=== PATIENT | female | born 1970 | race Caucasian/White ===

== ENCOUNTER 2017-06-16 15:07 | Emergency (ER) | payer BC, OTHER ==
--- NOTE | 2017-06-16 15:24 | EDM.PDOC ---
ED HPI GENERAL MEDICAL PROBLEM - General Stated Complaint: CHEST PAIN Time Seen by Provider: 06/16/17 15:07 Source of Information: Reports: Patient History Limitations: Reports: No Limitations - History of Present Illness INITIAL COMMENTS - FREE TEXT/NARRATIVE: 46 y.o.w.f came by PC because of CP at 3 am lasting a few sec and again at 8 am. Pt was working all day long and camd to the ed this pm after work. Pt did not have this episode the entire day. CAD risk factors: Family history and HTN. Cholesterol(?) No N/V/D or dizziness or any other acute medical issues. 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 Right Shoulder Pain Score (Numeric/FACES): 4 - Related Data Allergies Allergy/AdvReac Type Severity Reaction Status Date / Time No Known Allergies Allergy Verified 06/16/17 15:31 Home Meds: Home Meds Multivitamin [Multivitamins] 1 tab PO DAILY 06/16/17 [History] ED ROS GENERAL - Review of Systems Review Of Systems: See Below Constitutional: Reports: No Symptoms HEENT: Reports: No Symptoms Respiratory: Reports: No Symptoms Cardiovascular: Reports: No Symptoms Endocrine: Reports: No Symptoms GI/Abdominal: Reports: No Symptoms : Reports: No Symptoms Musculoskeletal: Reports: No Symptoms Skin: Reports: No Symptoms Neurological: Reports: No Symptoms Psychiatric: Reports: No Symptoms Hematologic/Lymphatic: Reports: No Symptoms Immunologic: Reports: No Symptoms ED EXAM, GENERAL - Physical Exam Exam: See Below Exam Limited By: No Limitations General Appearance: Alert, WD/WN Eye Exam: Bilateral Eye: Normal Inspection Ears: Normal External Exam Ear Exam: Bilateral Ear: Auricle Normal Nose: Normal Inspection, Normal Mucosa, No Blood Throat/Mouth: Normal Inspection, Normal Lips Head: Atraumatic, Normocephalic Neck: Normal Inspection, Supple, Non-Tender Respiratory/Chest: No Respiratory Distress, Lungs Clear, Normal Breath Sounds Cardiovascular: Normal Peripheral Pulses, Regular Rate, Rhythm, No Edema, No Gallop, No JVD, No Murmur, No Rub Peripheral Pulses: 1+: Carotid (R) GI/Abdominal: Normal Bowel Sounds, Soft, Non-Tender, No Organomegaly, No Distention, No Abnormal Bruit, No Mass, Pelvis Stable (Female) Exam: Deferred Rectal (Female) Exam: Deferred Back Exam: Normal Inspection, Full Range of Motion Extremities: Normal Inspection, Normal Range of Motion, Non-Tender, No Pedal Edema, Normal Capillary Refill Neurological: Alert, Oriented, CN II-XII Intact, Normal Cognition, Normal Gait, Normal Reflexes, No Motor/Sensory Deficits Psychiatric: Normal Affect, Normal Mood Skin Exam: Warm, Dry, Intact, Normal Color, No Rash Lymphatic: No Adenopathy EKG INTERPRETATION EKG Date: 06/16/17 Time: 15:20 Rhythm: NSR Rate (Beats/Min): 68 [place]: Normal P-Wave: Present QRS: Normal ST-T: Normal QT: Normal Comparison: NA - No Prior EKG Course - Vital Signs Text/Narrative:: 46 y.o.w.f came by PC because of CP at 3 am lasting a few sec and again at 8 am. Pt was working all day long and camd to the ed this pm after work. Pt did not have this episode the entire day. CAD risk factors: Family history and HTN. Cholesterol(?) Pt works out 6 times a week. No N/V/D or dizziness or any other acute medical issues. BP 131/61 pulse 64 RR 18 Temp 36.8 O2 sat 98% PE: WNWD W F NAD Labs: CBC, Trop. BMB DDimer all WNL Impression: Atypical chest pain TX: Pt too ASA INDUSTRIAL MAINTENANCE TECHNICIAN Reexam: Pt was pain free in the ED Plan: D/C with instructions Last Recorded V/S: Last Vital Signs Temp 36.7 C 06/16/17 15:10 Pulse 68 06/16/17 15:10 Resp 18 06/16/17 15:10 BP 131/61 06/16/17 15:10 Pulse Ox 99 06/16/17 15:10 - Orders/Labs/Meds Orders: Active Orders 24 hr Category Date Time Status EKG 12 Lead [EK] Routine Ther 06/16/17 15:16 Ordered Labs: Laboratory Tests 0206/16/17 06/16/17 Range/Units 15:50 15:50 15:50 WBC 9.2 (4.5-12.0) X10-3/uL RBC 4.45 (3.23-5.20) x10(6)uL Hgb 12.8 (11.5-15.5) g/dL Hct 37.9 (30.0-51.3) % MCV 85.2 (80-96) fL MCH 28.7 (27.7-33.6) pg MCHC 33.7 (32.2-35.4) g/dL RDW 12.5 (11.5-15.5) % Plt Count 201 (125-369) X10(3)uL MPV 8.7 (7.4-10.4) fL Neut % (Auto) 76.9 (46-82) % Lymph % (Auto) 18.1 (13-37) % [place] % (Auto) 3.9 L (4-12) % Eos % (Auto) 1 (1.0-5.0) % Baso % (Auto) 0 (0-2) % Neut # (Auto) 7.0 (1.6-8.3) # Lymph # (Auto) 1.7 (0.6-5.0) # [place] # (Auto) 0.4 (0.0-1.3) # Eos # (Auto) 0.1 (0.0-0.8) # Baso # (Auto) 0.0 (0.0-0.2) # PT 10.4 (8.7-11.1) INR 1.03 (0.89-1.13) D-Dimer, Quantitative (100-400) ng/mL Sodium 140 (135-145) mmol/L Potassium 4.0 (3.5-5.3) mmol/L Chloride 105 (100-110) mmol/L Carbon Dioxide 27 (21-32) mmol/L BUN 15 (7-18) mg/dL Creatinine 0.7 (0.55-1.02) mg/dL Est Cr Clr Drug Dosing TNP Estimated GFR (MDRD) > 60 (>60) BUN/Creatinine Ratio 21.4 H (9-20) Glucose 90 (80-116) mg/dL Calcium 8.6 (8.6-10.2) mg/dL Troponin I (<0.017-0.056) ng/mL 06/16/17 06/16/17 Range/Units 15:50 15:50 WBC (4.5-12.0) X10-3/uL RBC (3.23-5.20) x10(6)uL Hgb (11.5-15.5) g/dL Hct (30.0-51.3) % MCV (80-96) fL MCH (27.7-33.6) pg MCHC (32.2-35.4) g/dL RDW (11.5-15.5) % Plt Count (125-369) X10(3)uL MPV (7.4-10.4) fL Neut % (Auto) (46-82) % Lymph % (Auto) (13-37) % [place] % (Auto) (4-12) % Eos % (Auto) (1.0-5.0) % Baso % (Auto) (0-2) % Neut # (Auto) (1.6-8.3) # Lymph # (Auto) (0.6-5.0) # [place] # (Auto) (0.0-1.3) # Eos # (Auto) (0.0-0.8) # Baso # (Auto) (0.0-0.2) # PT (8.7-11.1) INR (0.89-1.13) D-Dimer, Quantitative < 100 L (100-400) ng/mL Sodium (135-145) mmol/L Potassium (3.5-5.3) mmol/L Chloride (100-110) mmol/L Carbon Dioxide (21-32) mmol/L BUN (7-18) mg/dL Creatinine (0.55-1.02) mg/dL Est Cr Clr Drug Dosing Estimated GFR (MDRD) (>60) BUN/Creatinine Ratio (9-20) Glucose (80-116) mg/dL Calcium (8.6-10.2) mg/dL Troponin I < 0.017 L (<0.017-0.056) ng/mL Departure - Departure Time of Disposition: 16:31 Disposition: Home, Self-Care 01 Condition: Good Clinical Impression: Atypical chest pain Instructions: Nonspecific Chest Pain Referrals: Luis Alberto Omer MD [Primary Care Provider] - Forms: ED Department Discharge Additional Instructions: Please get a fasting cholesterol level checked by your PMD, F/u, cont your current meds, come back if your symptoms get worse acutely - My Orders Last 24 Hours: My Active Orders 06/16/17 15:16 EKG 12 Lead [EK] Routine - Assessment/Plan Last 24 Hours: My Active Orders 06/16/17 15:16 EKG 12 Lead [EK] Routine
== END 2017-06-16 16:45 | disposition home or self-care (01) ==
LOC: FB.ED 15:07
DX: R07.89 Other chest pain (principal)
CPT/HCPCS: 36415; 80048; 84484; 85025; 85379; 85610; 93005; 99285

== ENCOUNTER 2022-06-18 05:35 | Emergency (ER) | payer BC ==
[2022-06-18 06:29] LABS: ESTIMATED GFR 90 mL/min (>60)
[2022-06-18] MEDS: Sodium Chloride 0.9% 10 ML Syringe FLUSH PRN ×2 (06:30→06:44)
[2022-06-18] MEDS ORDERED: Ketorolac 30 MG/ML SDV IVPUSH ONE (06:39)
== END 2022-06-18 08:31 | disposition home or self-care (01) ==
LOC: FB.ED 05:43
DX: R07.9 Chest pain, unspecified (principal); E66.9 Obesity, unspecified; Z68.41 Body mass index [BMI] 40.0-44.9, adult; Z79.82 Long term (current) use of aspirin
CPT/HCPCS: 36415; 71046; 80048; 84484; 85025; 85379; 93005; 96374; 99285-25; J1885; J3490